=== PATIENT | female | born 1975 | race Caucasian/White ===

== ENCOUNTER 2017-12-29 09:04 | Observation (INO) | payer MEDICAID ==
[2017-12-29] MEDS: D5W-0.45 NACL + KCL 20 MEQ 1,000 ML IV ×2 (00:45→16:07)
[2017-12-29] MEDS: SOD CHLORIDE 0.9% 1,000 ML IV (06:00)
[~2017-12-29 09:04] MED LIST: ATROPINE 1 MG/10 ML SYRINGE IV; CEFAZOLIN 2 GM/50 ML (PMX) 50 ML IVPB; DIPHENHYDRAMINE 50 MG INJ IV; EPHEDrine SULFATE 50 MG/5 ML SYG IV; FENTAnyl 50 MCG/ML VIAL IV; HYDROmorphONE (0.2 MG/ML) 10ML SYG IV; LABETALOL HCL 20MG INJ IV; LIDOCAINE 100 MG SYRINGE; MIDAZOLAM 1 MG/ML 2 ML INJ IV; ONDANSETRON 4 MG INJ IV; OXYCODONE/ACETAMINOPHEN (5/325) TAB PO; SUCCINYLCHOLINE CHLORIDE 100 MG/5 ML SYG IV; hydrALAzine 20 MG INJ IV; morphine (1 MG/ML) 10ML SYRINGE IV
[2017-12-29 11:28] LABS: ADD MAN DIFF? NO
[2017-12-29 11:31] LABS: WHITE BLOOD COUNT 3.5 10^3/ul (4.8-10.8)
[2017-12-29 11:31] LABS: BASOPHILS % 0.6 % (0.0-2.0); EOSINOPHILS # 0.2 10^3/ul (0.0-0.5); HEMATOCRIT 37.6 % (37.0-47.0); HEMOGLOBIN 13.1 g/dl (12.0-16.0); LYMPHOCYTES # 1.4 10^3/ul (0.8-2.9); LYMPHOCYTES % 40.1 % (15.0-51.0); MEAN CORPUSCULAR HEMOGLOBIN 30.4 pg (29.0-33.0); MEAN CORPUSCULAR HGB CONC 34.8 g/dl (32.0-37.0); MEAN CORPUSCULAR VOLUME 87.2 fl (82.0-101.0); MEAN PLATELET VOLUME 8.8 fl (7.4-10.4); MONOCYTE # 0.3 10^3/ul (0.3-0.9); MONOCYTES % 8.5 % (0.0-11.0); NEUTROPHIL # 1.6 10^3/ul (1.6-7.5); NEUTROPHILS % 44.5 % (39.0-77.0); PLATELET COUNT 268 10^3/UL (140-415); RED BLOOD COUNT 4.31 10^6/ul (4.20-5.40); RED CELL DISTRIBUTION WIDTH 12.3 % (11.5-14.5)
[2017-12-29 11:42] LABS: HOLD TRANSMISSIONS 1
[2017-12-29 11:49] LABS: ALANINE AMINOTRANSFERASE 49 IU/L (13-69); ALBUMIN 4.4 g/dl (3.3-4.9); ALBUMIN/GLOBULIN RATIO 1.29; ALKALINE PHOSPHATASE 78 IU/L (42-121); ANION GAP 17 (8-16); ASPARTATE AMINO TRANSFERASE 38 IU/L (15-46); BILIRUBIN,INDIRECT 0.4 mg/dl (0-1.1); BILIRUBIN,TOTAL 0.4 mg/dl (0.2-1.3); CARBON DIOXIDE 26 mmol/L (21-31); CHLORIDE 108 mmol/L (97-110); GLUCOSE 85 mg/dl (70-220); TOTAL PROTEIN 7.8 g/dl (6.1-8.1)
[2017-12-29] MEDS ORDERED: NEOSTIGMINE 3 MG/3 ML SYRINGE (11:58)
[2017-12-29] MEDS ORDERED: FENTAnyl 50 MCG/ML VIAL (11:58)
[2017-12-29] MEDS ORDERED: GLYCOPYRROLATE 0.4 MG INJ (11:58)
[2017-12-29] MEDS ORDERED: MIDAZOLAM 1 MG/ML 2 ML INJ (11:58)
[2017-12-29] MEDS ORDERED: ROCURONIUM 50 MG INJ (11:58)
[2017-12-29] MEDS ORDERED: PROPOFOL 20 ML (11:58)
[2017-12-29 12:03] LABS: BLOOD UREA NITROGEN 14 mg/dl (7-20); CALCIUM 9.3 mg/dl (8.4-10.2); CREATININE 0.47 mg/dl (0.44-1.00); POTASSIUM 3.8 mmol/L (3.5-5.1)
[2017-12-29 12:05] LABS: INR 0.93; PROTIME 12.6 Sec (11.9-14.9)
[2017-12-29 12:06] LABS: PARTIAL THROMBOPLASTIN TIME 26.5 Sec (25.0-35.0); SODIUM 147 mmol/L (135-144)
[2017-12-29] MEDS ORDERED: DEXAMETHASONE 4 MG/ML 1 ML INJ (12:39)
[2017-12-29] MEDS ORDERED: ONDANSETRON 4 MG INJ (12:40)
[2017-12-29] MEDS ORDERED: ONDANSETRON 4 MG INJ IV (14:00)
[2017-12-29] MEDS ORDERED: morphine 2 MG INJ IV (14:00)
[2017-12-29] MEDS ORDERED: ACETAMINOPHEN 1000MG/100ML IV 100 ML IVPB (14:00)
[2017-12-29] MEDS: MEPERIDINE 25 MG INJ IV (14:24)
[2017-12-29] MEDS: HYDROmorphONE (0.2 MG/ML) 10ML SYG IV (14:41)
[2017-12-30] MEDS: D5W-0.45 NACL + KCL 20 MEQ 1,000 ML IV (00:46)
== END 2017-12-30 17:45 | disposition home or self-care (01) ==
LOC: SDS 09:04 → REC 13:51 → MS2 15:25
DX: Z40.01 Encounter for prophylactic removal of breast (principal); Z85.3 Personal history of malignant neoplasm of breast; Z15.01 Genetic susceptibility to malignant neoplasm of breast; N61.0 Mastitis without abscess; I10 Essential (primary) hypertension
CPT/HCPCS: 19303; 80053; 85025; 85610; 85730; 88307; 88331; 99217